=== PATIENT | female | born 1960 | race African-American/Black ===

== ENCOUNTER 2017-11-04 03:45 | Emergency (ER) | payer OTHER ==
[2017-11-04] MEDS ORDERED: Lidocaine 1% (PF) 30 ML VIAL ONE (04:07)
[2017-11-04] MEDS ORDERED: Adacel (T-DAP) 0.5 ML VIAL ONE (04:44)
== END 2017-11-04 05:07 | disposition home or self-care (01) ==
LOC: ERS 03:45
DX: S61.212A Laceration without foreign body of right middle finger without damage to nail, initial encounter (principal); I10 Essential (primary) hypertension; W26.9XXA Contact with unspecified sharp object(s), initial encounter
CPT/HCPCS: 12001; 90471; 90715; J2001

== ENCOUNTER 2019-07-02 21:19 | Emergency (ER) | payer MEDICAID, OTHER ==
[2019-07-03] MEDS ORDERED: Ketorolac Tromethamine 60 MG/2 ML VIAL ONE (02:05)
[2019-07-03] MEDS ORDERED: Cyclobenzaprine 10 MG TAB ONE (04:30)
[2019-07-03 05:00] LABS: Bilirubin Negative (Negative); Blood, Urine Negative (Negative); Clarity Clear (Clear); Glucose, Urine (Dipstick) Normal (Negative); Leukocyte Negative Leu/uL (Negative); Nitrite Negative (Negative); Protein, Urine (Dipstick) Negative (Neg-Trace); Urobilinogen Normal mg/dL (Less than 2)
[2019-07-03] MEDS ORDERED: Dexamethasone 10 MG/ML VIAL ONE (06:06)
[2019-07-03 06:32] LABS: #Eosinphils 0.1 thou/uL (0.0-0.7); #Lymphocytes 3.7 thou/uL (1.20-3.40); #Monocytes 0.8 thou/uL (0.11-0.59); #Neutrophils 6.7 thou/uL (1.40-6.50); %Basophils 0.4 % (0.0-1.0); %Eosinophils 1.2 % (0.0-10.0); %Lymphocytes 32.7 % (21.0-51.0); %Monocytes 6.6 % (0.0-10.0); Mean Corpuscular HGB CONC 33.4 g/dL (32.0-36.0); Mean Corpuscular Volume 83.8 fL (78.0-98.0); Mean Platelet Volume 7.8 fL (7.4-10.4); Platelet Count 321 thou/uL (130-400); RBC Distribution Width 11.3 % (11.5-14.5); Red Blood Cell (RBC) Count 4.66 mill/uL (4.20-5.40); White Blood Cell (WBC) Count 11.3 thou/uL (4.8-10.8)
[2019-07-03] MEDS ORDERED: Morphine 4 MG/ML VIAL ONE (06:38)
[2019-07-03] MEDS ORDERED: Ondansetron PF 4 MG/2 ML Vial ONE (06:38)
[2019-07-03 06:41] LABS: INR-International Normal Ratio 1.1; Prothrombin Time 14.3 SEC (12.0-14.7)
[2019-07-03 06:55] LABS: ALT (SGPT) 7 U/L (8-55); AST (SGOT) 13 U/L (5-34); Albumin 3.9 g/dL (3.5-5.0); Alkaline Phosphatase 65 U/L (40-150); Anion Gap 15 mmol/L (10-20); BUN (Urea Nitrogen) 6 mg/dL (9.8-20.1); Bilirubin, Total 0.4 mg/dL (0.2-1.2); Calc. Creatinine Clearance 0 mL/min (70-130); Calcium 9.5 mg/dL (7.8-10.44); Carbon Dioxide 25 mmol/L (22-29); Chloride 102 mmol/L (98-107); Estimated GFR-MDRD 86; Globulin 3.4 g/dL (2.4-3.5); Glucose 92 mg/dL (70-105); Potassium 3.5 mmol/L (3.5-5.1); Protein, Total 7.3 g/dL (6.0-8.3); Sodium 138 mmol/L (136-145)
--- NOTE | 2019-07-03 08:19 | MRI ---
CERVICAL SPINE MRI WITHOUT CONTRAST: CLINICAL HISTORY: Spinal cord compression. COMPARISON: No recent comparison exams are available. FINDINGS: Straightening of normal cervical curvature is present with a slight kyphotic angulation centered at t he C4-5 level. There is no acute compression deformity. Mild multilevel marrow edema of the cervica l spine is favored to reflect degenerative process. There is grade I spondylolisthesis of C7-T1 leve l. Degenerative hypertrophy at the C1-2 level is seen with mild effacement of ventral thecal sac. C2-3: Broad-based disk-osteophyte is present with moderate central canal stenosis and cord flattenin g. Bilateral uncinate process hypertrophy is present, right greater than left, with moderate left an d mild right neural foraminal narrowing. C3-4: Left asymmetric broad-based disk-osteophyte complex present with moderate central canal stenos is and cord flattening. There is severe left and moderate right neural foraminal stenosis when combi lindy with uncinate process and facet hypertrophy. C4-5: Broad-based disk-osteophyte complex is present. There is a superimposed left paracentral disk protrusion. Moderate central canal stenosis with associated cord flattening is present. There is d egenerative hypertrophy of the uncinate process and facet joints noted bilaterally with severe right and moderate left neural foraminal stenosis. C5-6: Mild central canal narrowing due to disk-osteophyte. Uncinate process hypertrophy and facet d egeneration result in moderate bilateral neural foraminal stenosis. C6-7: Disk-osteophyte complex with superimposed central disk protrusion results in severe central ca nal stenosis and prominent cord compression. Bilateral uncinate process and facet hypertrophy result in severe bilateral neural foraminal stenosis. C7-T1: Mild to moderate central canal stenosis predominantly on the basis of spondylolisthesis and a ssociated left asymmetric disk-osteophyte. There is moderate bilateral neural foraminal narrowing. Evaluation of the cervical spine cord signal reveals a generalized increased intramedullary T2 signal likely on the basis of multilevel cord edema/compressive myelomalacia. IMPRESSION: Severe multilevel degenerative change throughout the cervical spine, which is most pronounced at C6-7 where there is severe central canal stenosis and prominent cord compromise. POS: NICOLAS
--- NOTE | 2019-07-03 08:28 | MRI ---
MRI THORACIC SPINE NONCONTRAST: Date: 07/03/19 INDICATION: Cord compression. FINDINGS: Evaluation of the thoracic spine reveals maintained vertebral body heights and alignment. No acute ma rrow edema or disc space edema. The thoracic spinal cord maintains appropriate caliber and signal thr oughout. There is Grade I spondylolisthesis of C7-T1 level. There is a small, right lateral osteophyt e at T3-4 without significant central canal stenosis. Left asymmetric disc osteophyte complex present involving T6-7 with slight effacement of the ventral thecal sac. There is a left subarticular disc p rotrusion at T7-8 with slight associated ventral mass effect. Mild disc bulge of T8-9 is present. Oth erwise no high grade central canal or neural foraminal stenosis. Scattered intrinsic T1 hyperintense foci of regional vertebral marrow may relate to areas of focal fa t deposition and/or intraosseous hemangiomas. IMPRESSION: Mild degenerative change of the thoracic spine as above. There is slight ventral effacement of the le ft hemicord at the T7-8 level due to left subarticular disc protrusion. POS: NICOLAS
--- NOTE | 2019-07-03 09:08 | MRI ---
MRI LUMBAR SPINE WITHOUT CONTRAST: Date: 07/03/19 INDICATION: Evaluate for cord compression. History of lower extremity and back pain. Reference made to 04/04/08 exam. FINDINGS: There is grossly stable, Grade I spondylolisthesis at L4-5, with associated disc bulge. There has bee n progressive disc degeneration at the L2-3, L3-4, and L5-S1 levels. Conus medullaris is normal in mo rphology, terminating at the T12-L1 level. No high grade central canal stenosis at T12-L1 or L1-L2 levels. L2-3: There is mild central canal stenosis due to broad based disc osteophyte. There is crowding of the traversing left L2 nerve root. Moderate left and mild right neural foraminal stenosis present. L3-4: Moderate to severe central canal stenosis is present due to disc osteophyte complex. Broad bas ed disc herniation spans the right paracentral through left foraminal zone. There is moderate bilater al neural foraminal stenosis. L4-5: Spondylolisthesis with associated disc bulge is present. There is progressive central canal st enosis at this level, severe in degree, along with moderate to severe right and moderate left neural foraminal stenosis. L5-S1: Mild central canal stenosis due to disc osteophyte complex formation. There is mild bilateral neural foraminal narrowing. Multilevel bilateral degenerative facet hypertrophy is present. Incidental note of cortical cysts of each kidney. IMPRESSION: Marked progression of multilevel degenerative change throughout the lumbar spine resulting in multile lobito up to severe central canal stenosis, as well as bilateral neural foraminal compromise as delineat ed above. There is associated redundancy of nerve roots of cauda equina due to the high level central canal stenosis of the mid to lower lumbar spine. Recommend neurosurgical consultation for further ch aracterization. POS: NICOLAS
== END 2019-07-03 08:44 | disposition home or self-care (01) ==
LOC: ERS 21:19
DX: M48.061 Spinal stenosis, lumbar region without neurogenic claudication (principal); I10 Essential (primary) hypertension; Z79.899 Other long term (current) drug therapy
CPT/HCPCS: 72141; 72146; 72148; 80053; 81003; 85025; 85610; 96372; 96374; 96375; J1100; J1885; J2270; J2405

== ENCOUNTER 2019-07-13 15:39 | Emergency (ER) | payer OTHER ==
[2019-07-13] MEDS ORDERED: Ketorolac Tromethamine 30 MG/ML VIAL ONE (16:13)
--- NOTE | 2019-07-13 16:49 | CT ---
Head CT without contrast 07/13/2019: COMPARISON: 03/30/2010 HISTORY: Injury TECHNIQUE: Axial CT imaging at 5 mm intervals from vertex through skull base without contrast FINDINGS: There is extensive periventricular, deep, and subcortical white matter hypodensity, similar when compared to prior imaging, suggesting extensive small vessel disease. There is a focal area of scalp swelling in the left frontal region. Imaged paranasal sinuses and mastoid air cells are well aerated. No displaced calvarial fracture. No intracranial hemorrhage, midline shift, or mass effect. IMPRESSION: Significant white matter disease. Small focus of scalp swelling in the left frontal regio n with no associated fracture or intracranial hemorrhage.
--- NOTE | 2019-07-13 16:54 | CT ---
Cervical spine CT scan without IV contrast: HISTORY: Injury from a fall Severe spondylosis with disc osteophytosis with variable severity canal, lateral recess, and foramina l stenosis, most marked at C4-C5, C5-C6, and C6-C7. No evidence for acute fracture or facet dislocation. IMPRESSION: No evidence for acute fracture or facet dislocation. Very severe spondylosis as above.
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
[2019-07-13] MEDS ORDERED: HYDROcodone/Acetaminophen 5/325 mg Tablet ONE (17:18)
== END 2019-07-13 17:25 | disposition home or self-care (01) ==
LOC: ERS 15:39
DX: M54.5 Low back pain (principal); R51 Headache; I10 Essential (primary) hypertension; Z79.899 Other long term (current) drug therapy; W18.2XXA Fall in (into) shower or empty bathtub, initial encounter
CPT/HCPCS: 70450; 72125; 72131; 96372; J1885

== ENCOUNTER 2019-12-11 21:16 | Emergency (ER) | payer OTHER ==
[2019-12-11] MEDS ORDERED: HYDROcodone/Acetaminophen 5/325 mg Tablet ONE (22:35)
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
== END 2019-12-11 23:30 | disposition home or self-care (01) ==
LOC: ERS 21:16
DX: S13.4XXA Sprain of ligaments of cervical spine, initial encounter (principal); S16.1XXA Strain of muscle, fascia and tendon at neck level, initial encounter; S76.011A Strain of muscle, fascia and tendon of right hip, initial encounter; I10 Essential (primary) hypertension; V43.62XA Car passenger injured in collision with other type car in traffic accident, initial encounter

== ENCOUNTER 2020-09-25 06:45 | Outpatient (CLI) | payer OTHER ==
[2020-09-25 13:56] LABS: Hemoglobin 12.7 g/dL (12.0-16.0); Mean Corpuscular HGB CONC 32.2 G/DL (32.0-36.0); Mean Platelet Volume 9.7 fl (7.4-10.4); Platelet Count 314 10x3/uL (130-400); RBC Distribution Width 12.5 % (11.5-14.5); Red Blood Cell (RBC) Count 4.53 10x6/uL (3.90-5.20)
[2020-09-25 22:59] LABS: SARS-CoV-2 MS2 Positive; SARS-CoV-2 N Gene Negative; SARS-CoV-2 S Gene Negative; SARS-CoV-2 by NAA Not Detected (NotDetected); SARS-CoV-2 orf1ab Negative
== END 2020-09-25 06:46 | disposition home or self-care (01) ==
LOC: LABBT 06:45
PROVIDERS: ATTEND Obstetrics & Gynecology
DX: Z01.812 Encounter for preprocedural laboratory examination (principal); Z20.828 Contact with and (suspected) exposure to other viral communicable diseases
CPT/HCPCS: 85027; 86850; 86900; 86901; 87635; U0003

== ENCOUNTER 2020-09-30 06:05 | Inpatient (IN) | payer OTHER ==
[2020-09-29 14:04] VITALS: BMI 29.9
--- NOTE | 2020-09-29 17:24 | HP ---
REASON FOR ADMISSION: Chronic pelvic pain, right greater than left for many years with negative sonographic findings. SCHEDULED PROCEDURE: Laparoscopic bilateral salpingo-oophorectomy with da Helena robot assist and lysis of adhesions. HISTORY OF PRESENT ILLNESS: Ms. Randhawa is a 60-year-old, status post hysterectomy with a long history of chronic pelvic pain. She feels that this is coming from her ovaries and has had occasional ovarian cyst. At this time, she does not have an abnormal pelvic ultrasound, but desires definitive surgical management. MEDICAL HISTORY: Chronic pelvic pain and asthma. PAST SURGICAL HISTORY: Hysterectomy. ALLERGIES: POLLEN AND LYRICA. MEDICATIONS: Include; 1. Alprazolam. 2. Amlodipine. 3. Baclofen. 4. Flexeril. 5. Diazepam. 6. . SOCIAL HISTORY: Denies tobacco, alcohol, or IV drug abuse. FAMILY HISTORY: Noncontributory. REVIEW OF SYSTEMS: Noncontributory. PHYSICAL EXAMINATION: GENERAL: Black female, 5 feet 5 inches, 183, BMI 30, blood pressure 142/80, pulse 98, respirations 18. HEENT: Within normal limits. LUNGS: Clear to auscultation bilaterally. HEART: Regular rate and rhythm. BREASTS: No masses bilaterally. ABDOMEN: Soft, nontender. No rebound or guarding. Vulva without lesions. Vagina without discharge. Cervix and uterus surgically absent. She has a well-healed midline skin incision. She is tender at the apex of her vagina, right greater than left. No adnexal masses are noted. EXTREMITIES: Without clubbing, cyanosis, or edema. LABORATORY DATA: Urinalysis was negative for leukocytes, nitrites, ketones, or glucose. IMPRESSION: Chronic pelvic pain, longstanding with tenderness at the apex of her vagina consistent with adhesive disease and likely ovarian adhesion. PLAN: Discussed with the patient options. We will proceed with laparoscopic bilateral salpingo-oophorectomy and lysis of adhesions. She understands the risks and benefits of procedure including bleeding, infection, failure to solve her pain, and damage to pelvic organs. We will administer appropriate antibiotic and DVT prophylaxis. Job ID: [id number]
[2020-09-30] MEDS ORDERED: Fentanyl 100 MCG/2 ML VIAL ONE ×3 (06:40→10:14)
[2020-09-30] MEDS ORDERED: Midazolam HCl 2 mg/2 ml Vial ONE ×2 (06:40→07:20)
[2020-09-30] MEDS ORDERED: Bupivacaine PF 0.5% 30 ML VIAL ONE (06:53)
[2020-09-30] MEDS ORDERED: Methylene Blue 50 MG/10 ML AMPUL ONE (06:53)
[2020-09-30] MEDS ORDERED: EPINEPHrine 1 MG/ML AMP ONE (06:53)
[2020-09-30] MEDS ORDERED: Ondansetron PF 4 MG/2 ML Vial IVP PRN ×2 (08:58→09:45)
[2020-09-30] MEDS ORDERED: Zolpidem Tartrate 5 MG TAB PO PRN ×2 (08:58→09:45)
[2020-09-30] MEDS ORDERED: Promethazine HCl 25 MG/ML VIAL IM PRN ×3 (08:58→09:45)
[2020-09-30] MEDS ORDERED: Bisacodyl 10 MG SUPP PR PRN (08:58)
[2020-09-30] MEDS ORDERED: diphenhydrAMINE 25 MG CAP PO PRN ×2 (08:58→09:45)
[2020-09-30] MEDS ORDERED: FENOPROFEN CALCIUM 600 MG PO PRN (09:02)
[2020-09-30] MEDS ORDERED: Meclizine HCl 25 MG TAB PO PRN (09:02)
[2020-09-30] MEDS ORDERED: Oxybutynin 5 MG TAB PO SCH (09:15)
[2020-09-30] MEDS ORDERED: Ondansetron HCl/PF 4 MG/2 ML Vial IVP PRN (09:27)
[2020-09-30] MEDS ORDERED: Promethazine HCl 25 MG/ML VIAL SLOW IVP PRN (09:27)
[2020-09-30] MEDS ORDERED: Naloxone HCl 0.4 mg/ml Vial IV PRN (09:45)
[2020-09-30] MEDS ORDERED: diphenhydrAMINE 50 MG/ML VIAL IM/IV PRN (09:45)
[2020-09-30] MEDS ORDERED: fentaNYL Citrate/PF 2,000 MCG in Sodium Chloride 0.9% 60 ML IV PRN (09:45)
[2020-09-30] MEDS ORDERED: Lidocaine 1% PF 5 ML VIAL ONE (10:04)
[2020-09-30] MEDS ORDERED: Dexamethasone 20 MG/5 ML VIAL ONE (10:04)
[2020-09-30] MEDS ORDERED: PHENYLEPHRINE-NS 100 MCG/ML 10 ML SYRINGE ONE (10:04)
[2020-09-30] MEDS ORDERED: Glycopyrrolate 0.2 MG/ML 5 ML SYRINGE ONE (10:04)
[2020-09-30] MEDS ORDERED: Rocuronium Bromide 10 MG/ML (10ML VIAL) ONE (10:04)
[2020-09-30] MEDS ORDERED: Ondansetron PF 4 MG/2 ML Vial ONE (10:04)
[2020-09-30] MEDS ORDERED: PROPOFOL 200 MG/20 ML VIAL ONE (10:04)
--- NOTE | 2020-09-30 10:23 | OP ---
DATE OF PROCEDURE: 09/30/2020 PREOPERATIVE DIAGNOSES: Chronic right pelvic pain with right ovarian adhesion to vaginal apex suspected, possible left ovary, prior incisional hernia repair. POSTOPERATIVE DIAGNOSES: Chronic right pelvic pain with right ovarian adhesion to vaginal apex suspected, possible left ovary, prior incisional hernia repair, plus dense adhesions in the pelvis and inability to identify or locate left ovary. PROCEDURES PERFORMED: Diagnostic laparoscopy, exploratory laparotomy, lysis of adhesions, and right salpingo-oophorectomy. BEEF PUSHER: NOEMI Pendleton ANESTHESIA: General endotracheal. ESTIMATED BLOOD LOSS: Less than 50 mL. COMPLICATIONS: None. DRAINS: Yoder to gravity. MEDICATIONS: 2 g Ancef preincision. DVT PROPHYLAXIS: SCDs. OPERATIVE FINDINGS: 1. Dense omental adhesions to the anterior abdominal wall from above the level of the umbilicus well lateral and down to approximately 5 cm below the umbilicus. 2. Adhesions of the right ovary to the apex of the vagina, bladder, and sigmoid colon. 3. Unable to identify left tube and ovary. 4. Hemostasis, clear urine. COUNTS: Correct at the end of the procedure. DISPOSITION: Recovery room in good condition. DESCRIPTION OF PROCEDURE: The patient was taken to the operating room, where general endotracheal anesthesia was achieved without difficulty. She was prepped and draped in dorsal lithotomy. A sponge stick was placed in vagina. Yoder catheter had been placed. Investigative Assistant changed his gloves, turned attention to abdominal portion of procedure. The patient was airplaned to the right and left subcostal Veress needle placement was attempted. It was unsuccessful in achieving low insufflation pressure, so decision was made to do a cutdown about fci between the umbilicus and the xiphoid midline with Carmenza trocar. Lidocaine with epinephrine was injected and about a 15 mm skin incision was made. Blunt dissection was carried down to the fascia, which was elevated, incised sharply using a curved Negron scissor. Peritoneum was entered bluntly and no trauma to underlying viscera was noted. Carmenza 12 mm trocar was placed. Confirmation of entry in the peritoneal cavity without trauma to the underlying viscera was noted. Inspection of the left upper quadrant revealed omentum to be densely adherent up there. No intestinal adhesions or damage was noted. Inspecting down into the pelvis, the omentum was noted to be densely adherent to the anterior abdominal wall to well below the level of the umbilicus because the decision was made to proceed with open procedure. A vertical midline incision was made from just above the symphysis pubis to just below the umbilicus, carried down through the fascia in the midline. Laparoscopically placed hernia mesh was encountered from the level of the umbilicus down approximately 5 cm and this was incised sharply using curved Negron scissors. The peritoneum was entered and the bowel was packed out of the way. A large René O retractor was placed inside. Right ovary was easily identified, noted to be adherent to the apex of the vagina, the rectosigmoid, and the bladder. Metzenbaum scissors were used to gently, sharply dissect the ovary off the bladder, the rectosigmoid, and the apex of the vagina, isolating the infundibulopelvic ligament. Ligature which had been open for a laparoscopic case was used to coagulate and transect the infundibulopelvic ligament. Exploration in the left lower quadrant revealed the rectosigmoid to be adherent to the bladder on this side and it was taken down sharply, taken to avoid trauma to both the bladder or the rectosigmoid. The cul-de-sac and Kishore were opened and explored as well and up to the level of pelvic brim, no ovary was identified on this side. It was felt either be densely adherent posterior to the rectosigmoid in the retroperitoneal space, but most likely to be surgically absent from the patient's hysterectomy. Small area of bleeding on the serosa on the patient's right was identified and suction irrigation was carried out. FloSeal was applied across that and moist packing was held on it for 3 minutes. No bleeding was noted after this was done. At this point in time, the case was terminated. The packing was removed, and the counts were correct. The René O was removed. The fascia at the level of the Carmenza cannula above the umbilicus was grasped with 2 Ochsners and reapproximated using a [id number] 0 Prolene pop-off. The fascia and hernia mesh were reapproximated closing the incision below the umbilicus using interrupted horizontal mattresses of 0 Prolene down to the inferior aspect of the hernia mesh and then the rest of the fascia was reapproximated using running continuous 0 PDS suture. Subcutaneous tissue was irrigated, rendered hemostatic with Bovie cautery, reapproximated using a 3-0 plain gut, and the skin reapproximated with marie x3 incision. The Yoder catheter was left in situ. Counts were correct. The patient was awakened, extubated, taken to recovery room in good condition. Job ID: [id number]
[2020-09-30] MEDS: Sodium Chloride 0.9% 1,000 ML IV SCH ×2 (11:16→16:34)
[2020-09-30] MEDS: Gabapentin 300 MG CAP PO SCH ×2 (15:17→23:18)
[2020-09-30] MEDS: ALPRAZolam 1 MG TAB PO PRN (23:17)
[2020-09-30] MEDS: Mirtazapine 15 MG TAB PO SCH (23:20)
[2020-10-01] MEDS: Sodium Chloride 0.9% 1,000 ML IV SCH ×2 (01:52→12:17)
[2020-10-01 07:56] LABS: Hemoglobin 12.1 g/dL (12.0-16.0); Mean Corpuscular HGB CONC 33.7 g/dL (32.0-36.0); Mean Corpuscular Hemoglobin 29.8 pg (27.0-31.0); Mean Corpuscular Volume 88.4 fL (78.0-98.0); Mean Platelet Volume 8.8 fL (7.4-10.4); Platelet Count 230 thou/uL (130-400); RBC Distribution Width 11.4 % (11.5-14.5); Red Blood Cell (RBC) Count 4.06 mill/uL (4.20-5.40)
--- NOTE | 2020-10-01 09:01 | PRG ---
DATE OF SERVICE: 10/01/2020 TIME OF SERVICE: 0840 hours. SUBJECTIVE: Ms. Randhawa is eating breakfast in bed. She remains on 2 L nasal cannula. She complains of mild abdominal pain. No nausea, vomiting, and discharge from her wound. The patient has had 765 IV, 1000 mL oral intake, and remains on a INSPECTOR FILTERS. She had 5200 mL urine output. Indwelling catheter will be discontinued this morning. LABORATORY DATA: Hematocrit went from 39% preoperatively to 35.9 with 18.0 white count, normal platelet count. OBJECTIVE: GENERAL: Black female, in no acute distress. VITAL SIGNS: Pulse is 105, ranged as high as 120 postoperatively, but is slowly coming down. Preoperative EKG was in normal sinus rhythm at 80. Temperature 98.5, T-max 99.5, respirations 20, and blood pressure 137/75. LUNGS: Clear to auscultation bilaterally. HEART: Regular rate and rhythm. ABDOMEN: Soft, nontender, and nondistended. There are hypoactive bowel sounds. Her incision is intact. There is a small amount of serosanguineous drainage at the lower aspect of the previous scar in its reapproximation, but no active bleeding. The perineum is dry. EXTREMITIES: Without clubbing, cyanosis, or edema. IMPRESSION: Doing wall status post exploratory laparotomy, right salpingo-oophorectomy, lysis of adhesions, postoperative day #1 with mild postoperative tachycardia resolving. PLAN: Advance care. Ambulate. Discontinue Yoder. Follow vitals. Anticipate discharge on 10/02 p.m. or 10/03. Job ID: [id number]
[2020-10-01] MEDS ORDERED: HYDROcodone/Acetaminophen 10/325 mg Tablet PO PRN ×2 (09:02→16:07)
[2020-10-01] MEDS: Losartan 25 MG TAB PO SCH (10:21)
[2020-10-01] MEDS: Oxybutynin 5 MG TAB PO SCH (10:21)
[2020-10-01] MEDS: Gabapentin 300 MG CAP PO SCH ×3 (10:21→22:25)
[2020-10-01] MEDS: Amlodipine 5 MG TAB PO SCH (10:22)
[2020-10-01] MEDS: Simethicone Chewable 80 MG TAB PO PRN (12:16)
[2020-10-01] MEDS: Cyclobenzaprine 10 MG TAB PO PRN (15:37)
[2020-10-01] MEDS ORDERED: traMADol HCl 50 MG TAB PO PRN (16:08)
[2020-10-01] MEDS ORDERED: Fentanyl 100 MCG/2 ML VIAL SLOW IVP PRN (16:08)
[2020-10-01] MEDS ORDERED: Ketorolac Tromethamine 30 MG/ML VIAL IVP SCH (16:15)
[2020-10-01] MEDS: HYDROcodone/Acetaminophen 10/325 mg Tablet PO PRN ×2 (17:22→21:13)
[2020-10-01] MEDS: Mirtazapine 15 MG TAB PO SCH (21:14)
[2020-10-02] MEDS: HYDROcodone/Acetaminophen 10/325 mg Tablet PO PRN ×5 (01:15→20:08)
[2020-10-02] MEDS: Sodium Chloride 0.9% 1,000 ML IV SCH ×3 (02:02→17:09)
[2020-10-02] MEDS: Cyclobenzaprine 10 MG TAB PO PRN ×2 (08:31→18:09)
[2020-10-02] MEDS: Gabapentin 300 MG CAP PO SCH ×3 (08:53→21:23)
--- NOTE | 2020-10-02 09:04 | PRG ---
DATE OF SERVICE: 10/02/2020 TIME OF SERVICE: 0800 hours. SUBJECTIVE: The patient is sitting in chair, resting comfortably. She states she feels much better than yesterday. She has passed gas. She has not had a bowel movement. She does still have moderate discomfort in her abdomen that she states radiates to her vagina. She states the incisional drainage has decreased or is absent. OBJECTIVE: VITAL SIGNS: Temperature 98.4, pulse 98, respirations 20, blood pressure 115/55, T-max 96. HEENT: Within normal limits. LUNGS: Clear to auscultation bilaterally. HEART: Regular rate and rhythm. ABDOMEN: Soft. She has bowel sounds in all 4 quadrants. Incision is intact and dry. EXTREMITIES: Without clubbing, cyanosis, or edema. LABORATORY DATA: The patient has had good urine output over the past 24 hours. IMPRESSION: Status post exploratory laparotomy with right salpingo-oophorectomy, pathology benign. PLAN: Routine care. Anticipate discharge home on 10/03. Job ID: [id number]
[2020-10-02] MEDS: Amlodipine 5 MG TAB PO SCH (09:37)
[2020-10-02] MEDS: Losartan 25 MG TAB PO SCH (09:37)
[2020-10-02] MEDS: Ketorolac Tromethamine 30 MG/ML VIAL IVP PRN (17:51)
[2020-10-02] MEDS: Simethicone Chewable 80 MG TAB PO PRN (20:07)
[2020-10-02] MEDS: Mirtazapine 15 MG TAB PO SCH (21:23)
[2020-10-03] MEDS: HYDROcodone/Acetaminophen 10/325 mg Tablet PO PRN ×2 (00:44→07:45)
[2020-10-03] MEDS: Simethicone Chewable 80 MG TAB PO PRN (00:44)
[2020-10-03] MEDS: ALPRAZolam 1 MG TAB PO PRN (01:00)
[2020-10-03] MEDS: Sodium Chloride 0.9% 1,000 ML IV SCH ×2 (02:34→08:59)
--- NOTE | 2020-10-03 07:02 | EKG ---
Test Reason : PREOP Blood Pressure : / mmHG Vent. Rate : 080 BPM Atrial Rate : 080 BPM P-R Int : 156 ms QRS Dur : 076 ms QT Int : 374 ms P-R-T Axes : 068 010 015 degrees QTc Int : 431 ms Normal sinus rhythm Normal ECG No previous ECGs available Confirmed by ELVIS SANTOS MD ([id number]) on 10/03/2020 7:01:56 AM Referred By: MITA NOWAK Confirmed By:ELVIS SANTOS MD
--- NOTE | 2020-10-03 07:08 | DIS ---
DATE OF ADMISSION: 09/30/2020 DATE OF DISCHARGE: 10/03/2020 SUMMARY OF HOSPITAL COURSE: The patient underwent a laparotomy with right salpingo-oophorectomy, lysis of adhesions for chronic right pelvic pain. Pathology of the ovary was benign. The patient had extensive omental adhesions from prior hernia repair surgery. Postoperative course was complicated only by slightly delayed return of bowel function. DISCHARGE PHYSICAL EXAMINATION: VITAL SIGNS: Temperature 97.7, pulse 100, respirations 16, and blood pressure 135/77. HEENT: Within normal limits. LUNGS: Clear to auscultation bilaterally. HEART: Regular rate and rhythm. ABDOMEN: Soft. Bowel sounds in all 4 quadrants. Incision, intact and dry. EXTREMITIES: No clubbing, cyanosis, or edema. IMPRESSION: Doing well, status post surgery. PLAN: Discharge home, very limited aaliyah Dudley called out for the patient secondary to her chronic pain management and seeing a pain management physician. Follow up at [facility] in 1 week for staple removal and 6 weeks for postoperative followup. Job ID: [id number]
[2020-10-03 07:53] VITALS: TEMP 98.4
[2020-10-03] MEDS: Amlodipine 5 MG TAB PO SCH (09:33)
[2020-10-03] MEDS: Losartan 25 MG TAB PO SCH (09:33)
[2020-10-03] MEDS: Oxybutynin 5 MG TAB PO SCH (09:33)
[2020-10-03] MEDS: Gabapentin 300 MG CAP PO SCH (09:33)
[2020-10-03 12:00] VITALS: BP 119/62
[2020-10-03] MEDS: Ketorolac Tromethamine 30 MG/ML VIAL IVP PRN (12:34)
--- NOTE | 2020-10-06 12:26 | PQF ---
CLINICAL DOCUMENTATION CLARIFICATION FORM: Dear : Pal Bell Date / Time: 10/06/2020 Please exercise your independent, professional judgment in responding to the clarification form. Clinical indicators are provided on the bottom of this form for your review Please check appropriate box(es): [ xxxxxxxxxxxxxxxxxxxxxxxxxxxxxxxxxxxxxxxxxxxxxxxxxxxxxxxxxxxxx ] Tachycardia is a complication of current surgery [ ] Tachycardia is not a complication of current surgery [ ] Other diagnosis [ ] Unable to determine In addition, please specify: Present on Admission (POA): [ ] Yes [xxxxxxxxxxxxxxxxxxxxxxxxxxxxxxxxxxxxxxx ] No [ ] Unable to determine To be completed by CDI/Coding staff for physician review: Present Clinical Indicators - Signs / Symptoms / Labs Results and Location in Medical Record [ x ] Doing well status exploratory laparotomy, right salpingo-oophorectomy, postoperative day 1 with mild postoperative tachycardia resolving Progress note 10/01 by Pal Bell MD [ x ] Vital signs: Pulse is 105, ranged as high as 120 postoperatively, but is slowly coming down Progress note 10/01 by Pal Bell MD Present Risk Factors Results and Location in Medical Record [ x ] Right salpingo-oophorectomy, lysis of adhesions OP report 09/30 by Mark Bell MD Present Treatments Results and Location in Medical Record [ x ] Follow vitals Progress note 10/01 by Pal Bell MD CDS/Electromatic Typist Signature: [id number] Phone #: Date/Time: 10/06/2020 This is a permanent part of the Medical Record [facility]
== END 2020-10-03 14:25 | disposition home or self-care (01) | DRG 742 ==
LOC: SDC 06:05 → 3SW 08:58
PROVIDERS: ADMIT Obstetrics & Gynecology; ATTEND Obstetrics & Gynecology
PROC: 0WJJ4ZZ Inspection of Pelvic Cavity, Percutaneous Endoscopic Approach (ICD-10-PCS; principal; 2020-09-30)
PROC: 0UT50ZZ Resection of Right Fallopian Tube, Open Approach (ICD-10-PCS; 2020-09-30)
PROC: 0UT00ZZ Resection of Right Ovary, Open Approach (ICD-10-PCS; 2020-09-30)
PROC: 0UN00ZZ Release Right Ovary, Open Approach (ICD-10-PCS; 2020-09-30)
DX: N73.6 Female pelvic peritoneal adhesions (postinfective) (principal); I97.191 Other postprocedural cardiac functional disturbances following other surgery; R10.2 Pelvic and perineal pain; G89.29 Other chronic pain; R00.0 Tachycardia, unspecified; Z90.710 Acquired absence of both cervix and uterus; Z88.8 Allergy status to other drugs, medicaments and biological substances; Y83.8 Other surgical procedures as the cause of abnormal reaction of the patient, or of later complication, without mention of misadventure at the time of the procedure
CPT/HCPCS: 36415; 85027; 86850; 86900; 86901; 88305; 93005; 93010; J0171; J0690; J1100; J1885; J2250; J2405; J2704; J3010; J3490; Q9968; S0020

== ENCOUNTER 2021-02-10 08:48 | Emergency (ER) | payer OTHER ==
[2021-02-10] MEDS ORDERED: Ketorolac Tromethamine 30 MG/ML VIAL ONE (09:37)
[2021-02-10 10:00] LABS: CK (CPK) 79 U/L (29-168); Lipase 44 U/L (8-78)
[2021-02-10] MEDS ORDERED: HYDROcodone/Acetaminophen 10/325 mg Tablet ONE (10:28)
[2021-02-10 10:34] LABS: #Basophils 0.2 thou/uL (0.0-0.2); #Eosinphils 0.3 thou/uL (0.0-0.7); #Lymphocytes 3.7 thou/uL (1.20-3.40); #Monocytes 0.5 thou/uL (0.11-0.59); #Neutrophils 4.2 thou/uL (1.40-6.50); %Basophils 1.8 % (0.0-1.0); %Eosinophils 3.2 % (0.0-10.0); %Lymphocytes 41.3 % (21.0-51.0); %Monocytes 5.8 % (0.0-10.0); %Neutrophils 47.9 % (42.0-75.0); Hemoglobin 14.5 g/dL (12.0-16.0); Mean Corpuscular Hemoglobin 28.5 pg (27.0-31.0); Mean Corpuscular Volume 86.3 fL (78.0-98.0); Mean Platelet Volume 8.2 fL (7.4-10.4); Platelet Count 326 thou/uL (130-400); RBC Distribution Width 11.7 % (11.5-14.5); Red Blood Cell (RBC) Count 5.09 mill/uL (4.20-5.40); White Blood Cell (WBC) Count 8.8 thou/uL (4.8-10.8)
== END 2021-02-10 11:06 | disposition home or self-care (01) ==
LOC: ERS 08:48
DX: G89.29 Other chronic pain (principal); R10.2 Pelvic and perineal pain; I10 Essential (primary) hypertension; Z79.899 Other long term (current) drug therapy
CPT/HCPCS: 82550; 83690; 85025; 96372; 99284; J1885